=== PATIENT | male | born 1950 | race Caucasian/White ===

== ENCOUNTER 2021-10-08 13:02 | Emergency (ER) | payer MEDICARE, OTHER, SELFPAY ==
--- NOTE | ~2021-10-08 | CT_ITS ---
EXAMINATION: CT soft tissue neck w con EXAM DATE: 10/08/2021 22:44 INDICATION: Dysphagia, hemoptysis and shortness of breath. TECHNIQUE: Spiral CT of the neck was performed following intravenous injection of 75 mL Omnipaque 350 . Axial, coronal and sagittal images were reviewed. The dose-length product (DLP) for this examinat ion was 560.28 mGy-cm. The exposure was tailored according to patient size (auto mA exposure control ), and iterative reconstruction (ASIR) was used as additional dose reduction technique. There is no prior study for comparison. FINDINGS: There is 2.8 cm right upper lobe opacity, most likely primary lung cancer, incompletely jerzy ged. Pneumonia not excludable. Multiple necrotic pathologically enlarged paratracheal and prevascular lymph nodes, metastatic disease. A right paratracheal lymph node for example measuring 2.3 x 2.9 cm. Right supraclavicular lymphadenopathy. There is ill-defined soft tissue density along the left brach iocephalic vein in the supraclavicular region and prevascular region potentially causing invasion or occlusion of the left brachiocephalic vein. Ill-defined fat planes from this are extending from this region along the internal jugular vein nearly to the skull base. There is edema along the piriform si nuses and glottis with thickened aryepiglottic folds, narrowed airway. Edema within the left parotid gland. Generalized edema along the anterior aspect of the neck. Submand ibular glands are unremarkable. Orbits are unremarkable. There is mild to moderate bilateral ethmoid mucoperiosteal thickening. Cervical spondylosis. IMPRESSION: 1. Right upper lobe mass probably primary lung cancer. Pneumonia much less likely. 2. Extensive mediastinal, prevascular, supraclavicular lymphadenopathy with extension of ill-defined fat planes along the left internal jugular vein, could be invasion of the left brachiocephalic. No i ntraluminal filling defect to specifically suggest bland thrombus. 3. Diffuse neck edema, edema of the airway at the glottis, aryepiglottic folds and piriform sinuses. Reviewed, dictated and finalized at location A. IMPRESSION: 1. Right upper lobe mass probably primary lung cancer. Pneumonia much less lik jhonathan. 2. Extensive mediastinal, prevascular, supraclavicular lymphadenopathy with ex tension of ill-defined fat planes along the left internal jugular vein, could b e invasion of the left brachiocephalic. No intraluminal filling defect to speci fically suggest bland thrombus. 3. Diffuse neck edema, edema of the airway at the glottis, aryepiglottic folds and piriform sinuses.
[2021-10-08 13:13] VITALS: BP 123/69; PULSE 72; RESP 18; TEMP 36.5; O2SAT 100
[2021-10-08 15:53] VITALS: BP 125/67; PULSE 67; RESP 18; TEMP 37.4; O2SAT 100
[2021-10-08 21:20] VITALS: RESP 18; O2SAT 98
--- NOTE | 2021-10-08 21:20 | ED.GENADULT ---
HPI - General Adult General Chief complaint: Unspecified Stated complaint: cough, difficulty swallowing Time Seen by Provider: 10/08/21 21:08 Source: patient Mode of arrival: ambulatory Limitations: no limitations History of Present Illness HPI narrative: Patient is a 71-year-old male complaining of difficulty swallowing, accompanied by postnasal drip which is causing him to cough and noticed blood-tinged sputum earlier but is now resolved. Patient states that he is unable to clear his secretion and that is why he he was short of breath earlier but not now. 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 Patient on a c-collar after fracturing his C1 this past July, no surgery done. She also states that they found a new spot on his lung and was told that it is a recurrence of his cancer and will be receiving chemotherapy starting next week. Review of Systems Review of Systems: All systems reviewed & are unremarkable except as noted in HPI and below Constitutional: Constitutional: Denies body ache(s), Denies chills, Denies excessive sweating, Denies fatigue, Denies fever(s), Denies headache(s), Denies lethargy, Denies malaise, Denies weakness and Denies weight loss Eyes: Eyes: Denies blurry vision, Denies change in vision and Denies loss of vision ENT: Denies dizziness, Denies ear discharge, Denies headache(s), Denies lip swelling, Denies epistaxis, Denies nasal congestion, Denies neck pain, Denies throat swelling and Denies tongue swelling Cardiovascular: Cardiovascular: Denies chest pain, Denies chest pain at rest, Denies chest pain with activity, Denies diaphoresis, Denies rapid heart rate, Denies edema, Denies irregular heart rhythm, Denies lightheadedness, Denies palpitations and Denies dyspnea on exertion Respiratory: Respiratory: Denies chest congestion and Denies dyspnea on exertion Gastrointestinal: Gastrointestinal: Denies abdominal pain, Denies melena, Denies hematochezia, Denies diarrhea, Denies nausea, Denies vomiting and Denies hematemesis Musculoskeletal: Musculoskeletal: Denies abnormal gait, Denies deformity, Denies joint swelling, Denies limited range of motion, Denies neck pain and Denies numbness Neurologic: Denies Abnormal speech present, Denies abnormal gait, Denies confusion, Denies dizziness, Denies headache(s), Denies focal weakness, Denies loss of vision, Denies numbness, Denies Other visual disturbances, Denies Sensory deficit (Neuro) and Denies weakness Psychiatric: Psychiatric: Denies confusion, Denies depression, Denies auditory hallucinations, Denies homicidal ideation and Denies suicidal ideation Endocrine: Endocrine: Denies cold intolerance, Denies excessive sweating, Denies fatigue, Denies heat intolerance and Denies palpitations Hematologic/Lymphatic: Hematologic/Lymphatic: Denies easy bleeding and Denies easy bruising Allergic/Immunologic: Allergic/Immunologic: Denies lip swelling, Denies throat swelling and Denies tongue swelling PMFSH Comments Past medical history: Head and neck CA, lung CA, C1 fracture repair Family history: Noncontributory Social history: Non-smoker no EtOH or drug use Exam Const: General: cooperative, healthy appearing, comfortable, no acute distress, well developed, alert and awake; No confusion Orientation/consciousness: oriented to person, oriented to place, oriented to time, patient oriented x3 and No confusion Limitations: no limitations HENMT: Head: normal to inspection, normocephalic and atraumatic Ears: hearing grossly normal bilaterally, TM normal on the right and TM normal on the left General nose exam: Normal external nose present, Normal nares present and No nasal discharge present Face and sinus: normal facial exam Mouth: Yes Normal oral and palatal mucosa present, Yes lip normal, Yes tongue normal and Yes oropharynx normal Throat: posterior oropharynx normal, tonsils normal and
[2021-10-08 21:47] LABS: Basophils Percent Auto 0.3 % (0.2-1.2); Eosinophils Absolute Auto 0.1 K/mm3 (0-0.3); Eosinophils Percent Auto 0.8 % (0-4.4); Hemoglobin 11.8 g/dL (14.0-18.0); Immature Granulocyte Absolute 0.01 K/mm3 (0.00-0.031); Immature Granulocyte Percent A 0.2 % (0-0.5); Lymphocytes Percent Auto 8.4 % (18.3-44.2); Mean Corpuscular HGB Conc 31.9 g/dl (32-36); Mean Corpuscular Hemoglobin 31.1 pg (26-34); Mean Corpuscular Volume 97.6 fl (80-100); Mean Platelet Volume 8.3 fl (7.4-10.4); Monocytes Absolute Auto 0.6 K/mm3 (0.1-0.6); Monocytes Percent Auto 9.2 % (2.6-8.5); Neutrophils Absolute Auto 4.8 K/mm3 (1.3-6.7); Neutrophils Percent Auto 81.1 % (45.5-73.1); Platelet Count Result 279 k/mm3 (150-375); Red Blood Count 3.79 M/mm3 (4.6-6.20); Red Cell Distribution Width 13.3 % (11.5-14.5)
[2021-10-08 21:57] LABS: Alanine Aminotransferase 53 U/L (4-50); Albumin Level 4.1 g/dL (3.5-5.1); Alkaline Phosphatase 138 U/L (38-126); Anion Gap 9 mmol/L (8-16); Aspartate Amino Transferase 59 U/L (17-59); Bilirubin,Total 0.6 mg/dL (0.2-1.3); Blood Urea Nitrogen 15 mg/dL (9-20); Calcium 9.9 mg/dL (8.4-10.2); Carbon Dioxide 32 mmol/L (22-30); Chloride 98 mmol/L (98-107); Estimated CRCL calculation 84 ml/min; Estimated Glomerular Filt Rate > 60; Glucose 128 mg/dL (65-110); Potassium 3.6 mmol/L (3.4-5.0); Sodium 139 mmol/L (137-145)
[2021-10-08] MEDS: LACTATED RINGERS 1,000 ML 999 ML IV CONT (22:47)
[2021-10-08 23:50] LABS: INR 1.1
[2021-10-08 23:51] LABS: Partial Thromboplastin Time 32.9 SECONDS (22.3-36.8)
[2021-10-08] MEDS: ONDANSETRON INJ 4 MG/2 ML VIAL IV PUSH (23:53)
[2021-10-08] MEDS: DEXAMETHASONE SOD PHOS INJ 4 MG/ML VIAL 10 MG IV PUSH (23:59)
[2021-10-09] MEDS: HYDROmorphone HCL INJ (*CRX) 1 MG/ML SYR 0.5 MG IV PUSH (00:03)
[2021-10-09 00:41] VITALS: BP 133/69; PULSE 67; RESP 18; O2SAT 97
== END 2021-10-09 00:48 | disposition home or self-care (01) ==
PROVIDERS: Emergency Provider Emergency Medicine; PCP Family Medicine Adolescent Medicine
DX: R59.0 Localized enlarged lymph nodes (principal); R13.10 Dysphagia, unspecified; C34.90 Malignant neoplasm of unspecified part of unspecified bronchus or lung
CPT/HCPCS: 36415; 70491; 80053; 85025; 85610; 85730; 96361; 96374; 96375; 99284; J1100; J1170; J2405; J7120; Q9967